=== PATIENT | female | born 1950 | race Hispanic/Latino ===

== ENCOUNTER 2017-09-26 07:39 | Day surgery (SDC) | payer MEDICAID ==
[2017-09-25 13:57] VITALS: BMI 33.6
[2017-09-26 08:19] VITALS: TEMP 97.1
--- NOTE | 2017-09-26 09:29 | CP.SDSHP ---
Same Day Surgery H & P - History Proposed Procedure: Colonoscopy Pre-Op Diagnosis: Constipation - Previous Medical/Surgical History Cardiac: Hypertension Pulmonary: Asthma Endocrine/Metabolic: Diabetes Comments: anxiety. Breast cancer Previous Surgical History: right mastectomy. right toe amputations - Allergies Allergies: Allergies ciprofloxacin [From Cipro] Allergy (Verified 11/09/15 01:51) SWELLING ciprofloxacin HCl [From Cipro] Allergy (Verified 11/09/15 01:51) SWELLING doxycycline Allergy (Verified 11/09/15 01:51) RASH - Current Medications Current Medications: reviewed, per reconciliation - Physical Exam General Appearance: wdwn nad Vital Signs: Vital Signs 09/26/17 07:55 Temperature 97.1 F L Pulse Rate 73 Respiratory 19 Rate Blood Pressure 123/61 O2 Sat by Pulse 98 Oximetry Mental Status: Alert & Oriented x3 Heart: WNL Lungs: WNL GI: WNL - {Optional Preform as Required} Abdomen: WNL - Impression Impression: constipation Pt. Evaluated Today:Candidate for Anesthesia & Procedure: Yes - Date & Time Date: 09/26/17 Time: 09:28 Short Stay Discharge - Short Stay Discharge Admitting Diagnosis/Reason for Visit: CONSTIPATION Disposition: HOME/ ROUTINE
[2017-09-26] MEDS ORDERED: Midazolam 2 MG/2 ML VIAL ONE (09:40)
[2017-09-26] MEDS ORDERED: Propofol 10 mg/ml Inj (20 ML) ONE (09:40)
[2017-09-26 12:33] VITALS: O2SAT 98
[2017-09-26 12:39] LABS: HEMOGLOBIN 12.8 g/dL (11.0-16.0); MEAN CELL VOLUME 88.3 fL (81.0-99.0); MEAN CORPUSCULAR HEMOGLOBIN 30.8 pg (27.0-31.0); MEAN CORPUSCULAR HGB CONC 34.8 g/dL (33.0-37.0); MEAN PLATELET VOLUME 8.3 fL (7.2-11.7); RBC 4.16 Mil/uL (3.80-5.20); WHITE BLOOD COUNT 7.9 K/uL (4.8-10.8)
[2017-09-26 12:41] VITALS: BP 138/63; PULSE 70; RESP 15
[2017-09-26 13:00] LABS: ALB/GLOB RATIO 1.4 (1.0-2.1); ALBUMIN 4.3 g/dL (3.5-5.0); ALT/SGPT 11 U/L (9-52); AST/SGOT 19 U/L (14-36); BLOOD UREA NITROGEN 9 mg/dL (7-17); CALCIUM 9.8 mg/dl (8.6-10.4); GFR AFRICAN-AMERICAN > 60; GFR NON-AFRICAN AMERICAN > 60
== END 2017-09-26 11:25 | disposition home or self-care (01) ==
LOC: C.ENDO 07:39
PROVIDERS: ATTEND Internal Medicine Gastroenterology
DX: C18.2 Malignant neoplasm of ascending colon (principal); K59.00 Constipation, unspecified; K62.1 Rectal polyp; Z90.11 Acquired absence of right breast and nipple; J45.909 Unspecified asthma, uncomplicated
CPT/HCPCS: 36415; 45388; 80053; 82378; 82948; 85027; 88305; J2250; J2704